=== PATIENT | female | born 1950 | race Asian ===

== ENCOUNTER 2024-04-25 06:21 | Day surgery (SDC) | payer OTHER, SELFPAY | END 2024-04-25 11:03 | disposition home or self-care (01) | LOC: GI 06:21 | PROVIDERS: ATTENDING PHYSICIAN Internal Medicine Gastroenterology | DX: Z12.11 Encounter for screening for malignant neoplasm of colon (principal); K64.8 Other hemorrhoids; K62.1 Rectal polyp; K57.30 Diverticulosis of large intestine without perforation or abscess without bleeding | CPT/HCPCS: 45385; 88305 ==